=== PATIENT | male | born 1980 | race Caucasian/White ===

== ENCOUNTER → 2016-09-17 | Outpatient (CLI) | payer BC ==
[~2016-09-17] MED LIST: IBUP-1022 PO; IBUP80TA PO; ROBA500T PO; TRAZ50TA11
[2016-09-18 11:11] LABS: ALKALINE PHOSPHATASE 49 U/L (45-117); ALT/SGPT 26 U/L (12-78); ANION GAP 7 MEQ/L (8-16); AST/SGOT 24 U/L (15-37); BILIRUBIN,TOTAL 0.6 MG/DL (0.2-1.0); BLOOD UREA NITROGEN 22 MG/DL (7-18); CALCIUM LEVEL 9.1 MG/DL (8.5-10.1); CARBON DIOXIDE LEVEL 28 MEQ/L (21-32); CHLORIDE LEVEL 101 MEQ/L (98-107); CHOLESTEROL LEVEL 164 MG/DL (<200); CREATININE FOR GFR 0.94 MG/DL (0.70-1.30); GLOMERULAR FILTRATION RATE > 60.0 (>60); GLUCOSE, FASTING 72 MG/DL (70-105); POTASSIUM SERUM 3.9 MEQ/L (3.5-5.1); SODIUM LEVEL 136 MEQ/L (136-145); TRIGLYCERIDES LEVEL 64 MG/DL (<150)
[2016-09-18 11:12] LABS: ALBUMIN 4.3 GM/DL (3.2-5.2); ALBUMIN/GLOBULIN RATIO 1.39 (1.00-1.93); TOTAL PROTEIN 7.4 GM/DL (6.4-8.2)
== END ==
LOC: M WUC 11:40
PROVIDERS: ATTEND Nurse Practitioner Family
DX: Z72.51 High risk heterosexual behavior (principal); Z13.220 Encounter for screening for lipoid disorders

== ENCOUNTER 2016-10-12 23:37 | Emergency (ER) | payer OTHER, BC ==
[~2016-10-12] VITALS: Ht 165.1 cm; Wt 61.3 kg
[2016-10-12 23:38] VITALS: BP 125/83
[2016-10-12] MEDS ORDERED: TRAZ50TA11 (23:50)
[2016-10-13] MEDS ORDERED: IBUP80TA PO (00:05)
[2016-10-13] MEDS ORDERED: ROBA500T PO (00:05)
[2016-10-13] MEDS: IBUPROFEN 800 MG TAB PO ONE (00:28)
[2016-10-13] MEDS: METHOCARBAMOL 500 MG TAB PO ONE (00:29)
== END 2016-10-13 00:40 | disposition home or self-care (01) ==
LOC: M ED 23:37
DX: S29.012A Strain of muscle and tendon of back wall of thorax, initial encounter (principal); X50.9XXA Other and unspecified overexertion or strenuous movements or postures, initial encounter; Y92.89 Other specified places as the place of occurrence of the external cause; Y93.89 Activity, other specified; Y99.0 Civilian activity done for income or pay; Z79.899 Other long term (current) drug therapy; Z88.0 Allergy status to penicillin; Z87.891 Personal history of nicotine dependence

== ENCOUNTER 2016-10-20 12:48 | Emergency (ER) | payer OTHER, BC ==
[~2016-10-20] VITALS: Ht 165.1 cm; Wt 59.0 kg
[~2016-10-20 12:48] MED LIST changes: -IBUP-1022 PO
[2016-10-20] MEDS ORDERED: IBUP-1022 PO (14:32)
[2016-10-20] MEDS ORDERED: ROBA500T PO (14:32)
[2016-10-20 14:53] VITALS: BP 136/92
== END 2016-10-20 14:56 | disposition home or self-care (01) ==
LOC: M ED 12:48
DX: S29.012A Strain of muscle and tendon of back wall of thorax, initial encounter (principal); X50.0XXA Overexertion from strenuous movement or load, initial encounter; Y92.89 Other specified places as the place of occurrence of the external cause; Y93.89 Activity, other specified; Y99.0 Civilian activity done for income or pay; F17.200 Nicotine dependence, unspecified, uncomplicated; Z88.0 Allergy status to penicillin

== ENCOUNTER → 2021-09-11 | Outpatient (CLI) | payer BC ==
[~2021-09-11] MED LIST changes: +IBUP-1022 PO; +TRAZ-252; -TRAZ50TA11
== END ==
LOC: M RAD 13:10
PROVIDERS: ATTEND Physician Assistant
DX: S99.921A Unspecified injury of right foot, initial encounter (principal)

== ENCOUNTER → 2024-03-15 | Outpatient (CLI) | payer BC | LOC: M SOG 07:52 | PROVIDERS: ATTEND Physician Assistant | DX: M79.642 Pain in left hand (principal) ==